=== PATIENT | male | born 1955 | race Caucasian/White ===

== ENCOUNTER 2017-07-30 10:11 | Emergency (ER) | payer OTHER ==
[~2017-07-30] VITALS: Ht 172.7 cm; Wt 75.7 kg
[2017-07-30 10:16] VITALS: BP_SYST 121
[2017-07-30 11:46] VITALS: BP_SYST 120
== END 2017-07-30 11:46 | disposition home or self-care (01) ==
LOC: SED 10:11
DX: F07.81 Postconcussional syndrome (principal); I10 Essential (primary) hypertension; E78.00 Pure hypercholesterolemia, unspecified; E03.9 Hypothyroidism, unspecified; E78.5 Hyperlipidemia, unspecified
CPT/HCPCS: 70450-TC; 99284